=== PATIENT | male | born 1935 | race Caucasian/White ===

== ENCOUNTER → 2016-08-17 | Outpatient (CLI) | payer MEDICARE, BC | END | disposition disaster alternative care site (69) | LOC: LFPA 09:47 | DX: R29.898 Other symptoms and signs involving the musculoskeletal system (principal); G31.84 Mild cognitive impairment of uncertain or unknown etiology ==

== ENCOUNTER → 2016-08-23 | Outpatient (CLI) | payer MEDICARE, BC | END | disposition disaster alternative care site (69) | LOC: GRAD 15:19 | DX: G31.84 Mild cognitive impairment of uncertain or unknown etiology (principal); Z53.8 Procedure and treatment not carried out for other reasons ==

== ENCOUNTER → 2016-08-27 | Outpatient (CLI) | payer MEDICARE, BC | END | disposition disaster alternative care site (69) | LOC: GRAD 14:38 | DX: G31.84 Mild cognitive impairment of uncertain or unknown etiology (principal) ==

== ENCOUNTER → 2016-12-01 | Outpatient (CLI) | payer MEDICARE, BC ==
[2016-12-01 12:34] LABS: BASOPHIL % 0.6 %; EOSINOPHIL # 0.2 K/uL (0.0-0.5); EOSINOPHIL % 2.4 %; HEMATOCRIT 46.1 % (37.0-53.0); HEMOGLOBIN 16.2 g/dL (11.0-16.0); IMMATURE GRANULOCYTE % 0.2 %; LYMPHOCYTE # 1.9 K/uL (0.8-4.0); LYMPHOCYTE % 28.3 %; MCH 30.9 pg (27.0-34.0); MCHC 35.1 gm/dL (32.0-36.5); MONOCYTE # 0.5 K/uL (0.0-1.0); MPV 9.5 fl (9.4-12.4); NEUTROPHIL % 61.5 %; NRBC % 0 /100WBC (0-0.00); PLATELET COUNT 207 K/uL (150-450); RBC 5.24 M/uL (3.50-5.50); RDW-CV 13.3 % (11.9-14.6); WBC 6.6 K/uL (4.0-11.0)
[2016-12-01 12:45] LABS: ALBUMIN 3.9 gm/dL (3.5-5.0); ANION GAP 8.9 (10.0-19.0); CALCIUM 9.2 mg/dL (8.5-10.5); CREATININE 1.3 mg/dL (0.6-1.3); PHOSPHORUS 2.9 mg/dL (2.5-4.9); POTASSIUM 3.9 mMol/L (3.7-5.1)
[2016-12-01 12:57] LABS: BLOOD URINE NEGATIVE /UL (NEGATIVE); COLOR URINE AMBER (YELLOW); GLUCOSE URINE NEGATIVE (NEGATIVE); KETONE URINE 5 mg/dL (NEGATIVE); LEUKOCYTES URINE 25 /UL (NEGATIVE); NITRITE URINE NEGATIVE (NEGATIVE); PROTEIN URINE 30 mg/dL (NEGATIVE); SPEC GRAVITY URINE 1.025 (1.003-1.035); TURBIDITY URINE CLEAR (CLEAR); UROBILINOGEN URINE 1 mg/dL (NORMAL)
[2016-12-01 13:12] LABS: EPITHELIAL URINE RARE #/HPF (NEGATIVE); RBC URINE NEGATIVE #/HPF (NEGATIVE); WBC URINE RARE #/HPF (NEGATIVE)
[2016-12-01 13:13] LABS: AMORPHOUS URINE 1+ (NEGATIVE); BACTERIA URINE NEGATIVE (NEGATIVE)
== END | disposition disaster alternative care site (69) ==
LOC: LCNC 12:26
PROVIDERS: Internal Medicine Interventional Cardiology
DX: I25.5 Ischemic cardiomyopathy (principal)

== ENCOUNTER 2017-01-18 08:06 | Emergency (ER) | payer MEDICARE, BC ==
--- NOTE | ~2017-01-18 | ER ---
PATIENT'S NAME: LUCILLE PALMA [facility] AGE: 81 Y [address] ROOM: [place] [address] LOCATION: [facility] ADMIT DATE: 01/18/2017 ER/Outpatient Report DISCHARGE DATE: 01/18/2017 FAMILY PHYSICIAN: Blu Sequeira MD ATTENDING PHYSICIAN: Da Cox CHIEF COMPLAINT: Weight loss, weakness and night sweats. He also was very dizzy today. HISTORY OF PRESENT ILLNESS: Mr. Palma presents with his for evaluation of the above chief complaint. He has noted that he has lost over 40 pounds in the last 4 weeks he states and about 15 pounds or so in the last 2 weeks. He also notes that he has to change his bedclothes several times at night secondary to sweating. He denies any new lumps or bumps. He states he does not eat and does not have much of an appetite. notes that he has a history of elevated blood pressure as well as mild dementia. He denies any abdominal pain or dysuria. No change in stool output. The patient has been more weak and dizzy over the last few days, but today he was very unsteady as they were trying to go to the doctor's office and they diverted to the emergency department because the was really worried about his potassium levels. PAST MEDICAL HISTORY: Documented on the record and reviewed by me. SOCIAL HISTORY: Documented on the record and reviewed by me. MEDICATIONS: Documented on the record and reviewed by me. ALLERGIES: DOCUMENTED ON THE RECORD AND REVIEWED BY ME. REVIEW OF SYSTEMS: All systems were reviewed and negative except as noted in the HPI. PHYSICAL EXAMINATION: VITAL SIGNS: Blood pressure 172/84, pulse 60, respiratory rate 20, temperature is not obtained, SpO2 is 92% on room air. Pain 0/10. GENERAL: Age-appropriate male, recumbent on exam table. No apparent pain or distress. NEUROLOGIC: Awake and alert. Confused at times, but GCS is 15 currently. He is repetitive with his thought processes and conversation on occasion. He follows commands in all extremities. No obvious abnormalities. PATIENT'S NAME: LUCILLE PALMA [facility] AGE: 81 Y [address] ROOM: [place] [address] LOCATION: [facility] ADMIT DATE: 01/18/2017 ER/Outpatient Report DISCHARGE DATE: 01/18/2017 FAMILY PHYSICIAN: Blu Sequeira MD ATTENDING PHYSICIAN: Da Cox HEENT: Normocephalic, atraumatic. Eyes are PERRL. The oropharynx is notable for dentures, but mucosa is moist and pink. TMs are pearly lloyd bilateral. No erythema or air fluid levels. NECK: Supple. Trachea is midline. CHEST: Heart is regular rate and rhythm with no murmurs. LUNGS: Grossly clear to auscultation bilaterally with no rhonchi, wheezes, or rales. ABDOMEN: Soft, nontender, and nondistended. No rebound or guarding. BACK: Normal to inspection and palpation. No CVA or spinal tenderness. LYMPHATIC SYSTEM: The patient has no axillary adenopathy or supraclavicular adenopathy. However, there are some focal findings in the bilateral groins concerning for inguinal adenopathy. Not consistent with hernias at this time. EXTREMITIES: Warm, well formed, well perfused with no obvious abnormalities. SKIN: Without gross rashes. LABORATORY DATA AND X-RAYS: CT of chest, abdomen and pelvis does not reveal any significant findings of adenopathy. Chest x-ray is unremarkable for adenopathy or other process per my review. EKG is consistent with prior pacing. There are few subtle changes in light secondary to lead placement and possible progression of cardiac disease in V2 and V3 as compared to prior EKGs. Labs: Procalcitonin is undetectable. CMS with no appreciable electrolyte abnormalities. Creatinine 1.1. GFR 64. LFTs unremarkable. CK-MB and troponin are within normal limits. CRP 0.31. Thyroid studies are within normal limits. CBC with no elevation of white count at 6.1 with normal differential; hemoglobin 14.2, platelets of 213, INR is 1.81. Serum lactate 0.7. IMPRESSION: 1. Rapid weight loss. 2. B-type symptoms. 3. Possible small early inguinal hernia without adenopathy. EMERGENCY DEPARTMENT COURSE: The patient was seen and evaluated as above. Based on his severe B-type symptoms as described, I was concerned about leukemia and lymphoma. Based on his labs and CT scan, I do not think that is the case today. I did discuss this presentation with Dr. Sequeira, the patient's primary care physician. Dr. Sequeira notes that he has a history of severe depression and has been very difficult to control. He has also had some issues with feeding in the past and not eating well. The patient expressed that this could possibly be PATIENT'S NAME: LUCILLE PALMA [facility] AGE: 81 Y [address] ROOM: [place] [address] LOCATION: [facility] ADMIT DATE: 01/18/2017 ER/Outpatient Report DISCHARGE DATE: 01/18/2017 FAMILY PHYSICIAN: Blu Sequeira MD ATTENDING PHYSICIAN: Da Cox the case. I do not have a good cause for his night sweats currently, however, his thyroid function is appropriate. The patient states he is up to date on his colon screening which his confirms. None of his other solid organs appear to be abnormal. We will have the patient see Dr. Sequeira tomorrow. All questions were answered and the patient was discharged in stable condition to the care of his . MD JONAH KURTZ/butch /[id number] d: t: 01/18/17 2235, OUTPATIENT REPORT
[2017-01-18 09:21] LABS: BASOPHIL % 0.7 %; EOSINOPHIL # 0.2 K/uL (0.0-0.5); EOSINOPHIL % 2.6 %; HEMATOCRIT 41.8 % (37.0-53.0); HEMOGLOBIN 14.2 g/dL (11.0-16.0); IMMATURE GRANULOCYTE % 0.2 %; LYMPHOCYTE # 2.1 K/uL (0.8-4.0); LYMPHOCYTE % 34.4 %; MCH 30.4 pg (27.0-34.0); MCV 89.5 fl (83.0-98.0); MONOCYTE # 0.4 K/uL (0.0-1.0); MONOCYTE % 6.9 %; MPV 8.6 fl (9.4-12.4); NEUTROPHIL # (ANC) 3.4 K/uL (1.4-9.0); NEUTROPHIL % 55.2 %; NRBC % 0 /100WBC (0-0.00); PLATELET COUNT 213 K/uL (150-450); RBC 4.67 M/uL (3.50-5.50); RDW-CV 13.6 % (11.9-14.6); WBC 6.1 K/uL (4.0-11.0)
[2017-01-18 09:31] LABS: INR - (THERAPEUTIC) 1.81 (0.92-1.07); PROTIME 19.1 SECONDS (9.8-11.4); PTT 32 SECONDS (25-32)
[2017-01-18 09:47] LABS: ALBUMIN 3.4 gm/dL (3.5-5.0); ALK PHOS 78 IU/L (33-138); ALT 24 IU/L (12-78); ANION GAP 9.8 (10.0-19.0); AST 19 IU/L (10-40); BLOOD UREA NITROGEN 13 mg/dL (6-24); CALCIUM 8.4 mg/dL (8.5-10.5); CHLORIDE 106 mMol/L (96-110); CO2 28 mMol/L (22-32); CREATININE 1.1 mg/dL (0.6-1.3); POTASSIUM 3.8 mMol/L (3.7-5.1); SODIUM 140 mMol/L (135-145); TOTAL BILIRUBIN 0.9 mg/dL (0.0-1.5); TOTAL PROTEIN 6.2 g/dL (6.0-8.4)
== END 2017-01-18 12:03 | disposition disaster alternative care site (69) ==
LOC: GMED 08:06
PROVIDERS: Emergency Medicine
DX: R63.4 Abnormal weight loss (principal); J44.9 Chronic obstructive pulmonary disease, unspecified; Z79.82 Long term (current) use of aspirin; Z79.01 Long term (current) use of anticoagulants; Z79.899 Other long term (current) drug therapy
CPT/HCPCS: J2001; Q9967